=== PATIENT | female | born 1950 | race Caucasian/White ===

== ENCOUNTER 2017-05-30 03:55 | Inpatient (IN) | payer OTHER ==
[~2017-05-30] VITALS: Ht 157.5 cm; Wt 68.9 kg
[~2017-05-30 03:55] MED LIST: AMLODIPINE BESYL5 M1 PO; ASPIRIN EC325 M2 PO; ASPIRIN EC81 M1 PO; ATENOLOL-CHLOR1 EAC1 PO; ATORVASTATIN CA20 M1 PO; COLACE100 M1 PO; DILAUDID2 M1 PO; GABAPENTIN300 M2 PO; GLUCOSAMINE1000 MG PO; MELOXICAM15 M1 PO; MIRALAX17 G1 PO; PREVACID15 M1 PO; SYNTHROID112 MCG PO; TURMERIC 450-51 EACH; VITAMIN D1000 UNIT PO
[2017-05-30] MEDS ORDERED: MELOXICAM15 M1 PO (06:55)
--- NOTE | 2017-05-30 10:22 | RADIOLOGY REPORT ---
EXAMINATION: XR HIP, LEFT CLINICAL INFORMATION: Left hip replacement COMPARISON: None TECHNIQUE: Two views of the left hip. FINDINGS: The femoral head prosthesis is well centered within the acetabular cup, which appears appropriately abducted and anteverted. The tip of the femoral stem is located in the medullary cavity of the proximal femoral diaphysis; no endosteal scalloping or periprosthetic fracture. Skin kris of the lateral hip and postoperative soft tissue gas around the hip. IMPRESSION: Satisfactory position and alignment of the components of the left total hip arthroplasty. No acute periprosthetic fracture.
--- NOTE | 2017-05-30 10:32 | Admission Core Measures ---
Acute Coronary Syndrome (CM) ACS Core Measures Acute Coronary Syndrome Diagnosis No Congestive Heart Failure (NEW) CHF Core Measures Congestive Heart Failure Diagnosis No Cerebrovascular Accident (NEW) CVA Core Measures CVA/TIA Diagnosis No Venous Thromboembolism VTE Core Mary (View Protocol) VTE Risk Factors Age>40 No Mechanical VTE Prophylaxis d/t N/A MechProphylax Ordered No VTE Pharm Prophylaxis d/t NA PharmProphylax ordered Problem List As ranked by this Provider includes Assessment & Plan 1. Unilateral primary osteoarthritis, left hip HOME MEDS Home Med List Amlodipine Besylate 5 MG TABLET 1 TAB PO DAILY HTN (Reported) Aspirin (Ecotrin*) 325 MG TABLET.DR 1 TAB PO BID ANTICOAGULATION Atenolol/Chlorthalidone (Atenolol-Chlorthalidone 50-25) 50 MG-25 MG TABLET 1 TAB PO DAILY HTN (Reported) Atorvastatin Calcium 20 MG TABLET 1 TAB PO DAILY CHOLESTEROL (Reported) Cholecalciferol (Vitamin D3) (Vitamin D) 1,000 UNIT TABLET 1 TAB PO DAILY SUPPLEMENT (Reported) Gabapentin 300 MG CAPSULE 1 CAP PO TID PAIN (Reported) Lansoprazole (Prevacid) 15 MG CAPSULE.DR 1 CAP PO DAILY GERD (Reported) Levothyroxine Sodium (Synthroid) 112 MCG TABLET 1 TAB PO DAILY REPLACEMENT ( Reported) Meloxicam 15 MG TABLET 1 TAB PO DAILY INFLAMMATION (Reported)
[2017-05-30] MEDS ORDERED: ASPIRIN EC325 M2 PO (10:34)
[2017-05-30] MEDS ORDERED: DILAUDID2 M1 PO (10:35)
[2017-05-30] MEDS ORDERED: MIRALAX17 G1 PO (10:35)
[2017-05-30] MEDS ORDERED: COLACE100 M1 PO (10:35)
--- NOTE | 2017-05-30 10:38 | Patient Discharge Instructions ---
Discharge Instructions General Discharge Information You were seen/treated for: Left hip pain related to unilateral primary osteoarthritis You had these procedures: Left total hip replacement Watch for these problems: Increasing pain despite the use of pain medication Increasing redness, warmth or swelling Drainage of any type from incision Inability to bear weight on operative leg Persistent nausea and vomiting Fever greater than 101.5 degrees Do not soak the wound: Yes No bath, but you may shower: Yes Other wound care: Please keep wound clean and dry. No ointments or lotions of any type on or near incision at any time. No exceptions. Your dressing will be changed by your nurse on the second day after your surgery. Daily dry dressing changes are recommended each day thereafter. Do not soak your wound in a bath at any time until otherwise indicated by your surgeon. You may shower, please dry wound immediately after shower with a clean towel. Special Instructions: Aspirin: You are taking this medication to help prevent blood clot formation. Please take with food to protect your stomach lining. Please take as directed. Constipation: Pain medication can cause constipation. Dr. Reed has recommended that you take Colace and miralax each day. You may discontinue this medication if you develop loose stool or diarrhea. If you wish to continue this medication, it is available over the counter. If you are unable to move your bowels after several days, if you are unable to pass gas and are developing bloating, nausea, or vomiting as a result, please contact your doctor. Diet Continue normal diet: Yes Recommended Diet: Regular Activity Full Activity/No Limits: No Activity Self Limited: Yes Pounds, do NOT lift more than: 10 Activity Limited to: Weight bear as tolerated Acute Coronary Syndrome Inclusion Criteria At DC or during hospital stay patient has or had the following: ACS DIAGNOSIS No Discharge Core Measures Meds if any: Prescribed or Continued at Discharge Meds if any: NOT Prescribed or Continued at Discharge Congestive Heart Failure Inclusion Criteria At DC or during hospital stay patient has or had the following: CHF DIAGNOSIS No Discharge Core Measures Meds if any: Prescribed or Continued at Discharge Meds if any: NOT Prescribed or Continued at Discharge Cerebrovascular accident Inclusion Criteria At DC or during hospital stay patient has or had the following: CVA/TIA Diagnosis No Discharge Core Measures Meds if any: Prescribed or Continued at Discharge Meds if any: NOT Prescribed or Continued at Discharge Venous thromboembolism Inclusion Criteria VTE Diagnosis No VTE Type NONE VTE Confirmed by (Test) NONE Discharge Core Measures - Per Current guidelines, there needs to be overlap - treatment for the first 5 days of Warfarin therapy. - If discharged on Warfarin prior to 5 days of - overlap therapy, the patient will need to be - assessed for post discharge needs including - *Post discharge parental anticoagulation - *Warfarin and/or parental anticoagulation education - *Follow up date to check INR post discharge At least 5 days overlap therapy as Inpatient No Meds if any: Prescribed or Continued at Discharge Note: Overlap Therapy is Warfarin and Anticoagulant Meds if any: NOT Prescribed or Continued at Discharge
--- NOTE | 2017-05-30 10:40 | Surgical Discharge Summary ---
Visit Information Visit Dates Admission Date: 05/30/17 Discharge Date: 06/01/17 History of Present Illness Chief Complaint: Left hip pain related to unilateral primary osteoarthritis Medical History Neurological: NONE EENT: NONE Cardiovascular: hypertension Respiratory: NONE Gastrointestinal: GERD Hepatic: NONE Renal: NONE Musculoskeletal: NONE Psychiatric: NONE Endocrine: hyperthyroidism Blood Disorders: NONE Cancer(s): NONE OBSTETRICAL TECH/Reproductive: NONE History of MRSA: No History of VRE: No History of CDIFF: No Isolation History: Standard Surgical History Pertinent Surgical History: appendectomy, cholecystectomy, hysterectomy Psychosocial History Who Do You Live With? Patient/Self Services at Home: None What is Your Primary Language? Stateless Review of Systems: See H&P Hospital Course Course Attending Physician: Marito Reed MD Primary Care Physician: Arian Corado MD Hospital Course: Patient was admitted to the hospital for an elective total joint replacement. The procedure was tolerated well and patient was transferred to a general surgical floor. Diet was advanced and tolerated, and the patient voided spontaneously. The patient was evaluated and treated by physical therapy. At the time of hospital discharge, the vital signs were stable, neurovascular status was intact, and pain was controlled with the use of oral pain medications. Allergies: Coded Allergies: amoxicillin (UNKNOWN 05/29/17) Disposition Summary Disposition Principal Diagnosis: Left hip unilateral primary osteoarthritis Additional Diagnosis: None Discharge Disposition: home health services Discharge Instructions General Discharge Information Code Status: Full Code Patient's Diet: Regular, advance as tolerated Patient's Activity: WBAT Follow-Up Instructions/Appts: Follow up with Dr. Reed in 6 weeks from date of surgery. Please call his office to arrange and/or confirm this appointment. Medications at Discharge Discharge Medications: Stop taking the following medications: Meloxicam (Meloxicam) 15 MG TABLET ORAL DAILY Continue taking these medications: Levothyroxine Sodium (Synthroid) 112 MCG TABLET 1 Tablet ORAL DAILY Comments: Last Taken: 06/01/17 Time: 0640 AM Atenolol/Chlorthalidone (Atenolol-Chlorthalidone 50-25) 50 MG-25 MG TABLET 1 Tablet ORAL DAILY Comments: Last Taken: 05/31/16 Time: 1000 Amlodipine Besylate (Amlodipine Besylate) 5 MG TABLET 1 Tablet ORAL DAILY Comments: Last Taken: 05/31/17 Time: 1700 PM Atorvastatin Calcium (Atorvastatin Calcium) 20 MG TABLET 1 Tablet ORAL DAILY Comments: Last Taken: 06/01/17 Time: 1700 PM Gabapentin (Gabapentin) 300 MG CAPSULE 1 Capsule ORAL THREE TIMES DAILY Instructions: CONTINUE IF NEEDED IN ADDITION TO NARCOTIC PAIN MEDS Comments: NOT GIVEN IN HOSPITAL Lansoprazole (Prevacid) 15 MG CAPSULE.DR 1 Capsule ORAL DAILY Comments: Last Taken: 06/01/17 Time: 0640 AM SUBSTITUTED Glucosamine Sulfate 2KCL (Glucosamine) 1,000 MG TABLET Tablet ORAL Every Day as needed for SUPPLEMENT Comments: NOT GIVEN IN HOSPITAL Cholecalciferol (Vitamin D3) (Vitamin D) 1,000 UNIT TABLET 1 Tablet ORAL DAILY Comments: NOT GIVEN IN HOSPITAL Turmeric/Turmeric Root Extract (Turmeric 450-50 MG Capsule) 450 MG-50 MG CAPSULE Comments: NOT GIVEN IN HOSPITAL Start taking the following new medications: Docusate Sodium (Colace) 100 MG CAPSULE 1 Capsule ORAL TWICE DAILY Qty = 14 No Refills Instructions: DISCONTINUE USE IF YOU DEVELOP LOOSE STOOL OR DIARRHEA Comments: Last Taken: 06/01/17 Time: 0930 AM Polyethylene Glycol 3350 (Miralax) 17 GRAM POWD.PACK 1 Packet ORAL DAILY Qty = 7 No Refills Instructions: dissolve in water, DISCONTINUE USE IF YOU DEVELOP LOOSE STOOL OR DIARRHEA Comments: Last Taken: 06/01/17 Time: 0930 AM Hydromorphone HCl (Dilaudid) 2 MG TABLET 1-2 Tablet ORAL EVERY 4-6 HOURS NEEDED as needed for PAIN Qty = 36 No Refills Comments: NOT TAKEN IN HOSPITAL The following medications have been changed: Old: Aspirin (Ecotrin*) 325 MG TABLET. 1 Tablet ORAL TWICE DAILY Qty = 60 New: Aspirin (Ecotrin*) 325 MG TABLET. 1 Tablet ORAL TWICE DAILY Qty = 60 Comments: Last Taken: 06/01/17 Time: 0930 AM
[2017-05-30 11:00] VITALS: BP 120/64
[2017-05-30 11:21] VITALS: BP 120/64
[2017-05-30 14:11] VITALS: BP 100/74
--- NOTE | 2017-05-30 14:25 | PN- Orthopedic ---
Subjective Subjective: POSTOP CHECK up with pt, but felt dizzy during tx. some nausea, no vomiting. tolerated liquids and toast. pain well controlled. no cp/sob. Objective Vital Signs and I&Os Vital Signs Date Time Temp Pulse Resp B/P B/P Pulse O2 O2 Flow FiO2 Mean Ox Delivery Rate 05/30 1411 97.7 76 20 100/74 97 Room Air 05/30 1121 97.6 71 20 120/64 95 Room Air 05/30 1100 97.6 71 20 120/64 95 Room Air Intake & Output 05/30 1600 05/30 0800 05/30 0000 05/29 1600 05/29 0800 05/29 0000 Intake Total 465 Output Total 300 Balance 165 Intake, IV 225 Intake, Oral 240 Output, Urine 300 Patient 152 lb Weight Weight Reported by Patient Measurement Method Physical Exam: GEN- NAD CARD- S1S2 RRR PULM- CTAB ABD- soft nt EXT- LLE: hip dressing CDI, nt, gross motor/sensory intact bl. BLE: palp DP, calves soft nt, alps on Assessment/Plan Assessment/Plan A- POD0 sp L BRUNO, stable, with some postop nausea and dizziness when OOB, now resolved. P- - reg diet as tolerated - HL once voids - WBAT, PT, OOB - ALPS, ASA BID - prn pain meds - DC planning Core Measures Venous Thromboembolism VTE Risk Factors Age>40 No Mechanical VTE Prophylaxis d/t N/A MechProphylax Ordered No VTE Pharm Prophylaxis d/t NA PharmProphylax ordered
--- NOTE | 2017-05-30 16:20 | Operative Report ---
Operative/Inv Procedure Report Surgery Date: 05/30/17 Name of Procedure: Left total hip replacement Pre-Operative Diagnosis: Primary left hip DJD Post-Operative Diagnosis: Same Estimated Blood Loss: 300 Surgeon/Varnisher Apprentice: Derek DOS SANTOS,Marito Chacon Anesthesia: block Operative/Procedure Note Note: Description of Procedure: The patient was taken to the operating room and positively identified. After induction of spinal anesthesia and administration of appropriate pre-operative antibiotics, the patient was positioned supine on the operating room table and all bony prominences were well padded. After performing a surgical timeout, the left lower extremity was prepped and draped in the usual sterile fashion. A direct anterior approach was made to the left hip. The incision was carried sharply through superficial soft tissues to the level of the fascia. Meticulous hemostasis was maintained with Bovie electocautery. The fascia over the tensor fascia milena muscle was opened sharply and the interval between the TFL and the sartorius was entered bluntly taking care to stay lateral to the lateral femoral cutaneous nerve. Retractors were placed around the femoral neck and the pericapsular fat was identified. The ascending branches of the lateral femoral circumflex vessels were identified and carefully coagulated. The pericapsular fat and anterior capsule were then resected. A napkin ring osteotomy was performed and the femoral head was removed without difficulty. Attention was then turned to the acetabulum. After appropriate placement of retractors, the acetabulum was exposed. Soft tissue was cleaned from the acetabular margin and notch. Overhanging osteophytes were removed and the teardrop was exposed. The acetabulum was then sequentially reamed to accept a 52 mm [place] Tritanium hemispherical solid shell. This was impacted into place in the appropriate position and fitted with a 32 mm Trident X3 zero degree polyethylene insert. Attention was then turned to the femur. After performing the appropriate ligament releases, the proximal femur was exposed. It was then sequentially broached to accept a size #4 [place] Accolade 2 stem. This was trialed for leg length and stability. The trial component was removed and the final component was impacted into place. The trunnion was carefully cleaned and fit with a 32 mm, +0 Biolox delta ceramic femoral head. The hip was reduced and put through a full range of motion and found to be stable. The articular space was then irrigated with sterile saline. The periarticular soft tissues were infilitrated with Marcaine. The fascial layer was closed with interrupted #1 vicryl suture and the skin was re-approximated with interrupted 2 -0 vicryl. The skin was closed with a running 3-0 V-Lock suture. Steri-strips and a sterile dressing were applied. The patient was awakened and taken to the recovery room in satisfactory condition.
[2017-05-30 20:00] VITALS: BP 104/60
[2017-05-31] VITALS (8 sets, daily range): BP systolic 100–118; BP diastolic 50–70
--- NOTE | 2017-05-31 09:03 | PN- Orthopedic ---
Subjective Subjective: Patient doing well, mild complaints of pain control with pain medication. No fever no flulike illness. Objective Vital Signs and I&Os Vital Signs Date Time Temp Pulse Resp B/P B/P Pulse O2 O2 Flow FiO2 Mean Ox Delivery Rate 05/31 0743 98.1 77 18 114/70 98 Room Air 05/31 0416 98.3 80 18 110/62 96 Room Air 05/31 0007 98.4 75 18 112/60 98 Room Air 05/30 2000 98.7 66 20 104/60 97 05/30 1411 97.7 76 20 100/74 97 Room Air 05/30 1121 97.6 71 20 120/64 95 Room Air 05/30 1100 97.6 71 20 120/64 95 Room Air Intake & Output 05/31 1600 05/31 0800 05/31 0000 05/30 1600 05/30 0800 05/30 0000 Intake Total 240 240 465 Output Total 400 300 Balance -160 240 165 Intake, IV 225 Intake, Oral 240 240 240 Number 0 Bowel Movements Output, Urine 400 300 Patient 152 lb Weight Weight Reported by Patient Measurement Method Physical Exam: Well-developed well-nourished no apparent distress. HEENT: Atraumatic, extraocular motion intact Neck: Supple, no lymphadenopathy Respiratory: No respiratory distress Extremities: No edema RIGHT lower extremity hip dressing in place, Dressing clean dry and intact with minimal bloody staining Incision without erythema Mild thigh swelling No signs of infection. No shortening or rotation Hip range of motion is limited and without unexpected pain Neurovascularly intact distally Bilateral calves are supple, nontender. Neuro: Alert and oriented x3 Psych: Mood affect normal, normal memory normal judgment. Skin: Warm and dry, no rash on exposed skin Results Last 48 Hours of Labs: Laboratory Tests 05/31 0750 Chemistry Sodium Pending Potassium Pending Chloride Pending Carbon Dioxide Pending Anion Gap Pending BUN Pending Creatinine Pending BUN/Creatinine Ratio Pending Hematology CBC w Diff Pending WBC Pending RBC Pending Hgb Pending Hct Pending MCV Pending MCH Pending RDW Pending Plt Count Pending MPV Pending PUBS MCHC Pending Assessment/Plan Assessment/Plan Postop day 1 status post left total hip arthroplasty anterior approach Perioperative antibiotics. Pain medication as needed. Out of bed Physical therapy, weightbearing as tolerated DC IV fluids Regular diet Follow a.m. labs Aspirin for DVT prophylaxis ALPS for DVT prophylaxis Regular home meds Dressing change postop day 2 PT cleared for discharge home. DC patient Home later today or tomorrow Core Measures Venous Thromboembolism VTE Risk Factors Age>40 No Mechanical VTE Prophylaxis d/t N/A MechProphylax Ordered No VTE Pharm Prophylaxis d/t NA PharmProphylax ordered
[2017-05-31 09:17] LABS: ABSOLUTE BASOPHIL COUNT 0 /CUMM (0.0-0.2); ABSOLUTE EOSINOPHIL COUNT 0 /CUMM (0.0-0.7); ABSOLUTE GRANULOCYTE CT 12.5 /CUMM (1.4-6.5); ABSOLUTE LYMPH COUNT 1.9 /CUMM (1.2-3.4); ABSOLUTE MONOCYTE COUNT 0.8 /CUMM (0.10-0.60); BASOPHIL % 0.2 % (0.0-2.0); EOSINOPHIL % 0.2 % (0-5); GRANULOCYTE % 82.2 % (42.2-75.2); HEMATOCRIT 35.7 % (37-47); MEAN CORPUSCULAR HGB 27.5 PG (27.0-31.0); MEAN CORPUSCULAR HGB CONC 32.8 G/DL (33.0-37.0); MEAN CORPUSCULAR VOLUME 84.1 FL (81.0-99.0); MEAN PLATELET VOLUME 10.4 FL (7.4-10.4); PLATELET COUNT 295 /CUMM (130-400); RBC DISTRIBUTION WIDTH 13.9 % (11.5-14.5); RED BLOOD CELL CT 4.25 /CUMM (4.20-5.40); WHITE BLOOD CELL COUNT 15.2 /CUMM (4.8-10.8)
[2017-06-01 04:00] VITALS: BP 106/60
--- NOTE | 2017-06-01 07:46 | PN- Orthopedic ---
Subjective Subjective: No acute overnight events reported. Passed flatus overnight but feels constipated this am. Has been voiding. Pain tolerable in right hip, has only been using tylenol. Has been oob ambulating. Cleared PT yesterday. Is anticipating discharge to home today. Objective Vital Signs and I&Os Vital Signs Date Time Temp Pulse Resp B/P B/P Pulse O2 O2 Flow FiO2 Mean Ox Delivery Rate 06/01 0400 98.2 76 20 106/60 95 05/31 2356 98.7 75 20 110/60 96 Room Air 05/31 1951 98.5 88 20 110/58 96 Room Air 05/31 1709 74 110/50 05/31 1615 98.1 74 20 108/50 97 Room Air 05/31 1537 98.1 79 18 100/60 95 05/31 1135 98.1 63 18 118/60 96 Room Air 05/31 0900 80 116/72 05/31 0743 98.1 77 18 114/70 98 Room Air Intake & Output 06/01 0800 06/01 0000 05/31 1600 05/31 0800 05/31 0000 05/30 1600 Intake Total 400 1500 240 240 465 Output Total 700 1000 600 400 300 Balance -700 -600 900 -160 240 165 Intake, IV 150 225 Intake, Oral 400 1350 240 240 240 Number 2 0 Bowel Movements Output, Urine 700 1000 600 400 300 Patient 152 lb Weight Weight Reported by Patient Measurement Method Physical Exam: General: Alert and oreinted x3, no acute distress Cardiac: RRR, s1s2 Pulm: CTA bilaterally, non-labored respiratory effort Abdomen: Softly distended, +bs Extremities: Moves all extremities, distal sensation intact. Skin warm and well perfused. Dressing removed. No drainage. Some steve-incisional bruising noted. No warmth. THigh compartment soft without evidence of hematoma. Bilateral calves soft and non-tender. Bilateral dp pulses palpable. Clean dry dressing applied. Assessment/Plan Assessment/Plan This is a 67 year old female, POD 2, s/p L THR, doing well -Continue current pain regimen -Continue oob, wbat -PT cleared for discharge to home -Continue asa 325 bid for dvt ppx x4 weeks Discharge to home today with [facility] Will d.w Dr. Reed Core Measures Venous Thromboembolism VTE Risk Factors Age>40 No Mechanical VTE Prophylaxis d/t N/A MechProphylax Ordered No VTE Pharm Prophylaxis d/t NA PharmProphylax ordered
[2017-06-01 10:00] VITALS: BP 100/60
== END 2017-06-01 11:29 | disposition home health service (06) | DRG 470 ==
LOC: SDA 03:55 → ENRESERV 10:02 → ENTRNSPT 10:34 → EDTRNSPT 10:43 → EDTRNSPTSTS 10:43 → 2NA 10:52 → CMPTRNSPT 11:03 → ENPENDDIS 06-01 08:53 → ENTRNSPT 06-01 11:13 → EDTRNSPT 06-01 11:16 → EDTRNSPTSTS 06-01 11:16 → 2NA 06-01 11:29 → CMPTRNSPT 06-01 11:32
PROVIDERS: Nurse Practitioner
PROC: 0SRB04A Replacement of Left Hip Joint with Ceramic on Polyethylene Synthetic Substitute, Uncemented, Open Approach (ICD-10-PCS; principal; 2017-05-30)
DX: M16.12 Unilateral primary osteoarthritis, left hip (principal); E05.90 Thyrotoxicosis, unspecified without thyrotoxic crisis or storm; I10 Essential (primary) hypertension; M25.752 Osteophyte, left hip; K21.9 Gastro-esophageal reflux disease without esophagitis
CPT/HCPCS: 2NAP; 36415; 73502-LT; 82436; 88304; 97110-GO; 97116-GO; 97161-GP; 97530-GO; J0131; J0690; J0735; J2405; J2550; J3490